=== PATIENT | male | born 1995 | race Caucasian/White ===

== ENCOUNTER → 2016-11-09 | Outpatient (CLI) | payer BC ==
[2015-09-19 09:28] VITALS: BP 122/72
[~2016-11-09] MED LIST: HYDR-971 PO
--- NOTE | 2016-11-09 12:12 | KCIC ---
PROCEDURE Two-view chest HISTORY Chronic bronchitis, shortness of air, cough for 4-5 months, chest discomfort COMPARISON June 24, 2015 FINDINGS Two views of the chest are submitted. There is no new infiltrate, pleural fluid, pneumothorax. Heart size is stable, within normal limits. IMPRESSION 1. There is no radiographic evidence of acute cardiopulmonary disease. Electronically signed by: Oswaldo Tenorio MD (Nov 09, 2016 12:10:46)
== END | disposition home or self-care (01) ==
LOC: KCIC 11:45
PROVIDERS: ATTEND Family Medicine
DX: R06.02 Shortness of breath (principal); R05 Cough; R07.89 Other chest pain
CPT/HCPCS: 71020

== ENCOUNTER → 2017-03-11 | Outpatient (CLI) | payer BC ==
[2015-09-19 09:28] VITALS: BP 122/72
--- NOTE | 2017-03-11 09:08 | KCIC ---
PQRS Compliance Statement: One or more of the following individualized dose reduction techniques were utilized for this examination: 1. Automated exposure control 2. Adjustment of the mA and/or kV according to patient size 3. Use of iterative reconstruction technique CT ABDOMEN PELVIS WO CONTRAST Clinical Indication: Right lower quadrant pain, loss of appetite, slight weight loss. Comparison: None. Technique: Helical CT imaging of the abdomen and pelvis is performed without IV or oral contrast. Findings: Evaluation of solid organs and bowel is limited without oral and IV contrast, decreasing sensitivity for detection of pathology. Lung bases are clear. Cardiac size normal. Liver, gallbladder, spleen, pancreas, adrenal glands, and abdominal aorta caliber are normal. No renal calculus. No perinephric stranding or hydronephrosis. Stomach unremarkable. No dilated small bowel. The appendix is normal. No colon wall thickening. No abdominal adenopathy or free fluid. Urinary bladder is normal. Prostate size normal. No pelvic free fluid. Transitional lumbosacral anatomy on the left. IMPRESSION: No acute abdominal or pelvic abnormality. Electronically signed by: Reymundo Mejia MD (03/11/2017 9:05 AM) [id number]
== END | disposition home or self-care (01) ==
LOC: KCIC CT 08:08
PROVIDERS: ATTEND Family Medicine
DX: R10.31 Right lower quadrant pain (principal); R63.4 Abnormal weight loss
CPT/HCPCS: 74176

== ENCOUNTER → 2019-02-28 | Outpatient (CLI) | payer BC ==
[2015-09-19 09:28] VITALS: BP 122/72
[~2019-02-28] MED LIST changes: +HYDR-3164 PO; -HYDR-971 PO
--- NOTE | 2019-02-28 17:07 | KCIC ---
Chest, PA and Lateral: Technique: PA and lateral views of the chest were obtained. History: Respiratory illness. Comparison: 11/09/2016. Findings: The heart and pulmonary vasculature appear within normal limits. The lungs are clear. The pleural margins are clear. Impression: No acute chest process is seen. Electronically signed by: Chip Moran MD (02/28/2019 5:04 PM) [place] [id number]
== END | disposition home or self-care (01) ==
LOC: KCIC 15:32
PROVIDERS: ATTEND Family Medicine
DX: J98.9 Respiratory disorder, unspecified (principal)
CPT/HCPCS: 71046

== ENCOUNTER → 2019-03-13 | Outpatient (CLI) | payer BC ==
[2015-09-19 09:28] VITALS: BP 122/72
--- NOTE | 2019-03-13 17:55 | KCIC ---
Examination: CT CHEST WO CONTRAST History: Pneumonitis Comparison/Correlation: 01/29/2019 two-view chest x-ray exam Findings: Axial images of chest were obtained without contrast. Sagittal and coronal reformatted images were provided. Extensive groundglass infiltrates of the lung haas are noted with subpleural sparing. No suspicious solid component or bronchiectasis. No dense consolidation seen. No enlarged thoracic lymph nodes. No pleural or pericardial effusion. Bony structures are unremarkable. Impression: Extensive interstitial infiltrates throughout the lung haas with subpleural sparing noted. Findings are evident since the prior two-view chest x-ray exam of 01/29/2019. Report for possibility of hypersensitivity pneumonitis. Correlate clinically in determining interval follow-up. PQRS Compliance Statement: One or more of the following individualized dose reduction techniques were utilized for this examination: 1. Automated exposure control 2. Adjustment of the mA and/or kV according to patient size 3. Use of iterative reconstruction technique Electronically signed by: Artem Zuniga MD (03/13/2019 5:51 PM) [facility]
== END | disposition home or self-care (01) ==
LOC: KCIC CT 09:44
PROVIDERS: ATTEND Family Medicine
DX: R91.8 Other nonspecific abnormal finding of lung field (principal); J18.9 Pneumonia, unspecified organism
CPT/HCPCS: 71250

== ENCOUNTER → 2019-04-20 | Outpatient (CLI) | payer BC ==
[2015-09-19 09:28] VITALS: BP 122/72
--- NOTE | 2019-04-20 17:19 | KCIC ---
EXAM: Chest, 2 views. HISTORY: Pneumonia. COMPARISON: 02/28/2019 FINDINGS: 2 views of the chest are obtained. There is no infiltrate, pleural effusion or pneumothorax. The heart is normal in size. IMPRESSION: No acute pulmonary finding. Electronically signed by: Hazel Alvarez MD (04/20/2019 5:16 PM) [id number]
== END | disposition home or self-care (01) ==
LOC: KCIC 15:55
PROVIDERS: ATTEND Internal Medicine Pulmonary Disease
DX: R06.02 Shortness of breath (principal); J45.909 Unspecified asthma, uncomplicated; J18.9 Pneumonia, unspecified organism
CPT/HCPCS: 71046